=== PATIENT | female | born 1995 | race Caucasian/White ===

== ENCOUNTER 2022-06-26 11:48 | Inpatient (IN) ==
[2022-06-26] MEDS ORDERED: LIDOCAINE 1% LOCAL 20 ML VIAL INFIL PRN (13:20)
[2022-06-26] MEDS ORDERED: OXYTOCIN 30 UNITS/500 ML BAG IV PRN ×2 (13:20→13:26)
[2022-06-26] MEDS ORDERED: PENICILLIN G POTASSIUM 6 MU in DEXTROSE 5% 250 ML IV STA (13:24)
--- NOTE | 2022-06-26 13:26 | Obstetrical Progress Note ---
Date of Service June 26, 2022 Assessment & Plan (1) SROM (spontaneous rupture of membranes): Plan: Pt seen in the office today with c/o SROM yesterday at 26hrs ago Pt was sent to L&D and amnio sure is +ve, no gross pooling FHR; CAT1 Ctx irregular Bedside sono; VT VE; ft/50/post Recommend augmentation of labor with Pitocin and antibx Results & Data ([facility]) Vital Signs (Past 12 Hours) Vital Signs Temp Pulse Resp BP 06/26/22 11:56 78 129/83 06/26/22 11:56 37.2 C 18
[2022-06-26] MEDS: LACTATED RINGER'S 1,000 ML IV PRN ×3 (13:46→23:26)
[2022-06-26 14:26] LABS: Hematocrit (blood only) 36.5 % (37.0-47.0); Hemoglobin 12.2 g/dl (12.0-16.0); Mean Corpuscular Hemoglobin 28.6 pg (25.0-34.0); Mean Corpuscular Hgb Conc 33.4 g/dL (32.0-36.0); Mean Corpuscular Volume 85.5 fL (80.0-100.0); Mean Platelet Volume 11.9 fL (9.4-12.4); Platelet Count 212 K/uL (130-400); RDW Coefficient of Variation 14.9 % (11.5-14.5); RDW Standard Deviation 46.3 fL (36.4-46.3); Red Blood Count 4.27 M/uL (4.20-5.40); White Blood Count 6.36 K/ul (4.8-10.8)
[2022-06-26] MEDS: PENICILLIN G POTASSIUM 3 MU in DEXTROSE 5% 100 ML IV PRN ×2 (17:47→22:01)
[2022-06-26] MEDS ORDERED: ePHEDrine sulfate 50 MG/ML AMP ONE (19:16)
[2022-06-26] MEDS ORDERED: SODIUM CHLORIDE 0.9% INJ 10 ML VIAL ONE (19:16)
[2022-06-26] MEDS ORDERED: fentaNYL citrate 100 MCG/2 ML VIAL ONE (19:16)
[2022-06-26] MEDS ORDERED: fentaNYL 2MCG/ML ROPIVACAINE 1.25MG/ML 100 ML BAG EPI ONE (19:17)
[2022-06-26] MEDS ORDERED: BUPIVACAINE 0.25% 30 ML VIAL ONE (19:17)
[2022-06-26] MEDS ORDERED: LIDOCAINE 2%/EPINEPHRINE 1:200,000 20 ML SDV ONE (19:17)
[2022-06-26] MEDS ORDERED: diphenhydrAMINE 50 MG/ML VIAL IV PRN (19:48)
[2022-06-26] MEDS ORDERED: NALBUPHINE HCL INJ 10 MG/ML AMP IV PRN (19:48)
[2022-06-26] MEDS ORDERED: NALOXONE HCL 0.4 MG/1 ML VIAL/CARP IV PRN (19:48)
[2022-06-26] MEDS ORDERED: NALOXONE HCL 1 MG in SODIUM CHLORIDE 0.9% 1000ML 1,000 ML IV PRN (19:48)
[2022-06-26] MEDS ORDERED: ONDANSETRON INJ 2 MG/ML 2 ML VIAL IV PRN (19:48)
[2022-06-26] MEDS ORDERED: PROMETHAZINE HCL 6.25 MG in SODIUM CHLORIDE 0.9% 50 ML IV PRN (19:48)
[2022-06-26] MEDS ORDERED: ePHEDrine sulfate 50 MG/ML AMP IV PRN (19:48)
--- NOTE | 2022-06-26 19:48 | Anesthesiology Consultation ---
Date of Service June 26, 2022 Assessment & Plan Chart Review Chart Review: Patient NOT seen in Pre Admission Testing and Acceptable Risk for Labor Epidural Consults Requested none ASA ASA2 Proposed Anesthesia Anesthesia Type: Labor Epidural Risk / Benefits Reviewed With: PT / POA / Parent / Guardian, Accepts Plan and Informed Consent Obtained History Height/Weight Height: 5 ft 2 in Weight: 74.389 kg Allergies Allergy/AdvReac Type Severity Reaction Status Date / Time No Known Drug Allergies Allergy Unknown Unknown Verified 06/26/22 12:21 Medications Home Medications Medication Instructions Recorded Confirmed Last Taken Vitamin 1 tab 1XD 06/26/22 06/26/22 06/25/22 22:00 Vitron-C 1 pad PO 1XD 06/26/22 06/26/22 06/23/22 11:00 magnesium 1 tab PO 1XD 06/26/22 06/26/22 06/25/22 22:00 Active Medications Generic Name Dose Route Start Last Admin Trade Name Freq PRN Reason Stop Dose Admin Penicillin G Potassium 3 mu/ 106 mls @ 100 mls/hr 06/26/22 16:20 06/26/22 18:50 Dextrose IV 07/06/22 16:19 Infused Q4H PRN Infusion GBS(+) Until Delivery Lactated Ringer's 1,000 mls @ 125 mls/hr 06/26/22 13:20 06/26/22 19:11 Lr IV 06/28/22 13:19 999 mls/hr .Q8H PRN Infusion L&D Protocol Protocol Oxytocin 30 units in 500 mls @ 16 mls/hr 06/26/22 13:26 06/26/22 18:23 Pitocin IV 06/28/22 13:25 0.96 units/hr .Q24H PRN 16 mls/hr Labor Induction/Augmentation Titration Protocol 0.96 UNITS/HR Past Medical History Medical History (Updated 06/26/22 @ 13:23 by Marvin Moody MD) Heart murmur Exercise / Class Metabolic Activity II 4-5 Yardwork/Stairs/Walk up hill Past Family History Family History (Updated 06/26/22 @ 12:19 by Antonietta Toribio, SHAYNE) Other No known health problems Past Surgical History Surgical History (Updated 06/26/22 @ 12:19 by Antonietta Toribio, RN) History of tooth extraction Past Anesthesia History No Hx of Anesthesia Complications and No Family Hx of Anesthesia Complications History of PONV No Hx of PONV and No Hx of Motion Sickness Social History Smoking Status: Never smoker Do You Dip or Chew Tobacco: No Hx Alcohol Use: No Hx Substance Use: No substance use type: does not use Physical Exam Vital Signs Last Vital Signs Temp 37.2 C 06/26/22 19:03 Pulse 73 06/26/22 19:34 Resp 18 06/26/22 19:03 BP 156/95 H 06/26/22 19:34 ENMT Mouth: no dentition abnormality Thyromental Distance: > or= 3.5 Finger Breadths Mallampati Class: II Neck normal visual inspection Respiratory normal respiratory effort Auscultation: lungs clear to auscultation bilaterally Cardiovascular Rate/Rhythm: regular rate and regular rhythm Psychiatric Orientation: alert Testing Laboratory Results 06/26/22 13:57
[2022-06-26] MEDS: fentaNYL 2MCG/ML ROPIVACAINE 1.25MG/ML 100 ML BAG EPI PRN (20:04)
--- NOTE | 2022-06-26 21:48 | Obstetrical Progress Note ---
Date of Service June 26, 2022 Assessment & Plan (1) SROM (spontaneous rupture of membranes): Plan Pt doing well VE 9/100/0 station FHR; CAT1 Ctx 1-2 On Pitocin On antibx Bulginf bag- AROM with amnio hook 'anticipate VD Admission and Anticipated Discharge Date Admission Date: June 26, 2022 Results & Data ([facility]) Vital Signs (Past 12 Hours) Vital Signs Temp Pulse Resp BP Pulse Ox 06/26/22 19:03 37.2 C 18 06/26/22 21:45 85 97 06/26/22 21:31 18 06/26/22 21:31 18 06/26/22 21:40 18 06/26/22 21:40 82 18 98 06/26/22 21:35 98 06/26/22 21:35 73 06/26/22 21:35 80 133/74 06/26/22 21:30 89 98 06/26/22 21:25 91 H 98 06/26/22 21:20 80 98 06/26/22 21:19 82 131/75 06/26/22 21:15 85 98 06/26/22 21:02 18 06/26/22 21:02 37.0 C 18 06/26/22 21:10 75 98 06/26/22 21:05 79 98 06/26/22 21:04 88 122/73 06/26/22 21:00 83 98 06/26/22 20:55 83 99 06/26/22 20:50 99 06/26/22 20:50 81 06/26/22 20:50 78 131/73 06/26/22 20:45 74 98 06/26/22 20:40 87 97 06/26/22 20:35 98 06/26/22 20:35 74 06/26/22 20:35 77 124/75 06/26/22 20:30 84 98 06/26/22 20:25 18 06/26/22 20:25 72 18 97 06/26/22 20:20 85 18 98 06/26/22 20:10 18 06/26/22 20:10 18 06/26/22 20:18 77 130/77 06/26/22 20:15 77 18 98 06/26/22 20:16 79 133/78 06/26/22 20:14 78 134/78 06/26/22 20:12 77 132/75 06/26/22 20:10 97 06/26/22 20:10 80 06/26/22 20:10 86 141/82 H 06/26/22 20:08 86 136/77 06/26/22 20:05 75 18 97 06/26/22 20:06 72 139/77 06/26/22 20:04 77 151/74 H 06/26/22 20:02 81 147/85 H 06/26/22 20:00 94 H 98 06/26/22 19:55 101 H 98 06/26/22 19:34 73 156/95 H 06/26/22 18:46 86 139/86 06/26/22 18:42 75 146/102 H 06/26/22 18:33 78 138/98 06/26/22 17:50 16 06/26/22 17:50 37.0 C 16 06/26/22 17:33 85 124/73 06/26/22 16:34 78 131/81 06/26/22 16:15 16 06/26/22 16:15 36.9 C 16 06/26/22 15:33 96 H 134/84 06/26/22 14:33 79 140/86 06/26/22 13:50 18 06/26/22 13:50 37.0 C 82 18 136/78 06/26/22 11:56 78 129/83 06/26/22 11:56 37.2 C 18
[2022-06-27] MEDS: LACTATED RINGER'S 1,000 ML IV PRN ×2 (00:27→07:15)
--- NOTE | 2022-06-27 01:48 | Obstetrical Progress Note ---
Date of Service June 27, 2022 Assessment & Plan (1) SROM (spontaneous rupture of membranes): Plan: Fully dilated and pushing pain is 10 despite epidural Ctx 1-2mins VE; 10/100/+1 Pit; 16 Plan Pitocin decreased to half and d/c Turb given SQ IVF and oxygen Admission and Anticipated Discharge Date Admission Date: June 26, 2022 Results & Data ([facility]) Vital Signs (Past 12 Hours) Vital Signs Temp Pulse Resp BP Pulse Ox 06/26/22 19:03 37.2 C 18 06/27/22 01:41 99 H 100 06/27/22 01:36 100 H 100 06/27/22 01:37 98 H 136/82 06/27/22 01:31 105 H 100 06/27/22 01:26 107 H 99 06/27/22 01:22 103 H 91 06/27/22 01:21 98 H 98 06/27/22 01:05 101 H 146/86 H 06/27/22 00:20 83 L 06/27/22 00:20 118 H 06/27/22 00:20 118 H 86 L 06/27/22 00:15 118 H 98 06/27/22 00:10 83 L 06/27/22 00:10 112 H 06/27/22 00:10 101 H 160/93 H 06/27/22 00:05 108 H 80 L 06/27/22 00:00 129 H 96 06/26/22 23:57 110 H 91 06/26/22 23:55 90 99 06/26/22 23:50 97 H 97 06/26/22 23:45 91 H 99 06/26/22 23:40 88 97 06/26/22 23:35 97 06/26/22 23:35 86 06/26/22 23:35 87 154/95 H 06/26/22 23:30 91 H 98 06/26/22 23:25 85 98 06/26/22 23:20 87 97 06/26/22 23:19 91 H 142/89 H 06/26/22 23:15 90 97 06/26/22 23:10 86 98 06/26/22 23:05 86 97 06/26/22 23:04 83 131/82 06/26/22 23:00 93 H 98 06/26/22 22:55 86 98 06/26/22 22:50 86 97 06/26/22 22:49 78 135/83 06/26/22 22:45 86 98 06/26/22 22:40 83 97 06/26/22 22:35 96 06/26/22 22:35 84 06/26/22 22:35 86 134/84 06/26/22 22:30 111 H 98 06/26/22 22:25 90 98 06/26/22 22:20 92 H 99 06/26/22 22:19 84 144/88 H 06/26/22 22:15 88 97 06/26/22 22:10 86 99 06/26/22 22:05 79 98 06/26/22 22:04 85 127/82 06/26/22 22:00 84 98 06/26/22 21:55 81 98 06/26/22 21:50 84 140/84 98 06/26/22 21:45 85 97 06/26/22 21:31 18 06/26/22 21:31 18 06/26/22 21:40 18 06/26/22 21:40 82 18 98 06/26/22 21:35 98 06/26/22 21:35 73 06/26/22 21:35 80 133/74 06/26/22 21:30 89 98 06/26/22 21:25 91 H 98 06/26/22 21:20 80 98 06/26/22 21:19 82 131/75 06/26/22 21:15 85 98 06/26/22 21:02 18 06/26/22 21:02 37.0 C 18 06/26/22 21:10 75 98 06/26/22 21:05 79 98 06/26/22 21:04 88 122/73 06/26/22 21:00 83 98 06/26/22 20:55 83 99 06/26/22 20:50 99 06/26/22 20:50 81 06/26/22 20:50 78 131/73 06/26/22 20:45 74 98 06/26/22 20:40 87 97 06/26/22 20:35 98 06/26/22 20:35 74 06/26/22 20:35 77 124/75 06/26/22 20:30 84 98 06/26/22 20:25 18 06/26/22 20:25 72 18 97 02/27/23 20:20 85 18 98 06/26/22 20:10 18 06/26/22 20:10 18 06/26/22 20:18 77 130/77 06/26/22 20:15 77 18 98 06/26/22 20:16 79 133/78 06/26/22 20:14 78 134/78 06/26/22 20:12 77 132/75 06/26/22 20:10 97 06/26/22 20:10 80 06/26/22 20:10 86 141/82 H 06/26/22 20:08 86 136/77 06/26/22 20:05 75 18 97 06/26/22 20:06 72 139/77 06/26/22 20:04 77 151/74 H 06/26/22 20:02 81 147/85 H 06/26/22 20:00 94 H 98 06/26/22 19:55 101 H 98 06/26/22 19:34 73 156/95 H 06/26/22 18:46 86 139/86 06/26/22 18:42 75 146/102 H 06/26/22 18:33 78 138/98 06/26/22 17:50 16 06/26/22 17:50 37.0 C 16 06/26/22 17:33 85 124/73 06/26/22 16:34 78 131/81 06/26/22 16:15 16 06/26/22 16:15 36.9 C 16 06/26/22 15:33 96 H 134/84 06/26/22 14:33 79 140/86 06/26/22 13:50 18 06/26/22 13:50 37.0 C 82 18 136/78
[2022-06-27] MEDS: PENICILLIN G POTASSIUM 3 MU in DEXTROSE 5% 100 ML IV PRN ×2 (01:54→07:13)
[2022-06-27] MEDS ORDERED: BUPIVACAINE 0.25% 30 ML VIAL ONE (02:09)
[2022-06-27] MEDS ORDERED: TERBUTALINE SULFATE 1 MG/ML VIAL SQ ONE (03:06)
--- NOTE | 2022-06-27 03:06 | Obstetrical Progress Note ---
Date of Service June 27, 2022 Assessment & Plan (1) SROM (spontaneous rupture of membranes): Plan: Epidural analgesia redosed by anesthesia Pt's pain level is now minimal VE; unchanged. fetus responds with accells Ctx: minimal Plan start Pitocin will start pushing once we have a ctx pattern Admission and Anticipated Discharge Date Admission Date: June 26, 2022 Results & Data ([facility]) Vital Signs (Past 12 Hours) Vital Signs Temp Pulse Resp BP Pulse Ox 06/27/22 02:15 37.1 C 18 06/27/22 01:00 37.6 C H 18 06/26/22 23:00 37.4 C 18 06/26/22 19:03 37.2 C 18 06/27/22 02:56 100 H 98 06/27/22 02:51 102 H 100 06/27/22 02:49 101 H 134/75 06/27/22 02:46 100 H 100 06/27/22 02:41 98 H 100 06/27/22 02:36 98 H 100 06/27/22 02:34 102 H 136/73 06/27/22 02:31 93 H 100 06/27/22 02:26 102 H 100 06/27/22 02:21 103 H 100 06/27/22 02:19 94 H 134/78 06/27/22 02:16 98 H 100 06/27/22 02:11 97 H 98 06/27/22 02:06 94 H 100 06/27/22 02:05 102 H 142/81 H 06/27/22 02:01 95 H 100 06/27/22 01:56 101 H 100 06/27/22 01:51 96 H 100 06/27/22 01:49 91 H 137/77 06/27/22 01:46 98 H 100 06/27/22 01:41 99 H 100 06/27/22 01:36 100 H 100 06/27/22 01:37 98 H 136/82 06/27/22 01:31 105 H 100 06/27/22 01:26 107 H 99 06/27/22 01:22 103 H 91 06/27/22 01:21 98 H 98 06/27/22 01:05 101 H 146/86 H 06/27/22 00:20 83 L 06/27/22 00:20 118 H 06/27/22 00:20 118 H 86 L 06/27/22 00:15 118 H 98 06/27/22 00:10 83 L 06/27/22 00:10 112 H 06/27/22 00:10 101 H 160/93 H 06/27/22 00:05 108 H 80 L 06/27/22 00:00 129 H 96 06/26/22 23:57 110 H 91 06/26/22 23:55 90 99 06/26/22 23:50 97 H 97 06/26/22 23:45 91 H 99 06/26/22 23:40 88 97 06/26/22 23:35 97 06/26/22 23:35 86 06/26/22 23:35 87 154/95 H 06/26/22 23:30 91 H 98 06/26/22 23:25 85 98 06/26/22 23:20 87 97 06/26/22 23:19 91 H 142/89 H 06/26/22 23:15 90 97 06/26/22 23:10 86 98 06/26/22 23:05 86 97 06/26/22 23:04 83 131/82 06/26/22 23:00 93 H 98 06/26/22 22:55 86 98 06/26/22 22:50 86 97 06/26/22 22:49 78 135/83 06/26/22 22:45 86 98 06/26/22 22:40 83 97 06/26/22 22:35 96 06/26/22 22:35 84 06/26/22 22:35 86 134/84 06/26/22 22:30 111 H 98 06/26/22 22:25 90 98 06/26/22 22:20 92 H 99 06/26/22 22:19 84 144/88 H 06/26/22 22:15 88 97 06/26/22 22:10 86 99 06/26/22 22:05 79 98 06/26/22 22:04 85 127/82 06/26/22 22:00 84 98 06/26/22 21:55 81 98 06/26/22 21:50 84 140/84 98 06/26/22 21:45 85 97 06/26/22 21:31 18 06/26/22 21:31 18 06/26/22 21:40 18 06/26/22 21:40 82 18 98 06/26/22 21:35 98 06/26/22 21:35 73 06/26/22 21:35 80 133/74 06/26/22 21:30 89 98 06/26/22 21:25 91 H 98 06/26/22 21:20 80 98 06/26/22 21:19 82 131/75 06/26/22 21:15 85 98 06/26/22 21:02 18 06/26/22 21:02 37.0 C 18 06/26/22 21:10 75 98 06/26/22 21:05 79 98 06/26/22 21:04 88 122/73 06/26/22 21:00 83 98 06/26/22 20:55 83 99 06/26/22 20:50 99 06/26/22 20:50 81 06/26/22 20:50 78 131/73 06/26/22 20:45 74 98 06/26/22 20:40 87 97 06/26/22 20:35 98 06/26/22 20:35 74 06/26/22 20:35 77 124/75 06/26/22 20:30 84 98 06/26/22 20:25 18 06/26/22 20:25 72 18 97 06/26/22 20:20 85 18 98 06/26/22 20:10 18 06/26/22 20:10 18 06/26/22 20:18 77 130/77 06/26/22 20:15 77 18 98 06/26/22 20:16 79 133/78 06/26/22 20:14 78 134/78 06/26/22 20:12 77 132/75 06/26/22 20:10 97 06/26/22 20:10 80 06/26/22 20:10 86 141/82 H 06/26/22 20:08 86 136/77 06/26/22 20:05 75 18 97 06/26/22 20:06 72 139/77 06/26/22 20:04 77 151/74 H 06/26/22 20:02 81 147/85 H 06/26/22 20:00 94 H 98 06/26/22 19:55 101 H 98 06/26/22 19:34 73 156/95 H 06/26/22 18:46 86 139/86 06/26/22 18:42 75 146/102 H 06/26/22 18:33 78 138/98 06/26/22 17:50 16 06/26/22 17:50 37.0 C 16 06/26/22 17:33 85 124/73 06/26/22 16:34 78 131/81 06/26/22 16:15 16 06/26/22 16:15 36.9 C 16 06/26/22 15:33 96 H 134/84
[2022-06-27] MEDS: fentaNYL 2MCG/ML ROPIVACAINE 1.25MG/ML 100 ML BAG EPI PRN (05:12)
[2022-06-27] MEDS ORDERED: SODIUM CHLORIDE 0.9% 250 ML IV PRN (08:04)
[2022-06-27] MEDS ORDERED: LIDOCAINE 2%/EPINEPHRINE 1:200,000 20 ML SDV ONE (08:25)
[2022-06-27] MEDS ORDERED: MoRPHine SULFATE PF 1 MG/ML 10 ML AMP/VIAL ONE (08:25)
[2022-06-27] MEDS ORDERED: ONDANSETRON INJ 2 MG/ML 2 ML VIAL ONE (08:25)
[2022-06-27] MEDS ORDERED: SODIUM BICARB 8.4% INJ 50 MEQ/50 ML SYR IV ONE (08:26)
[2022-06-27] MEDS ORDERED: ceFAZolin 2000MG 2,000 MG/15 ML SYR IV ONE ×2 (09:29)
[2022-06-27] MEDS ORDERED: CITRIC ACID/SODIUM CITRATE 15 ML UDC ONE (09:31)
[2022-06-27] MEDS ORDERED: AZITHROMYCIN 500 MG in DEXTROSE 5% 250 ML IV STA (09:49)
[2022-06-27] MEDS ORDERED: NALOXONE HCL 0.08 MG in SYRINGE 1.8 ML IV PRN (10:11)
[2022-06-27] MEDS ORDERED: HYDROmorphone INJ 0.5 MG/0.5 ML SYR IV PRN (10:11)
[2022-06-27] MEDS ORDERED: ONDANSETRON INJ 2 MG/ML 2 ML VIAL IV PRN (10:11)
[2022-06-27] MEDS ORDERED: LACTATED RINGER'S 500 ML IV PRN (10:11)
[2022-06-27] MEDS ORDERED: NALBUPHINE HCL INJ 10 MG/ML AMP IV PRN (10:11)
[2022-06-27] MEDS ORDERED: diphenhydrAMINE 50 MG/ML VIAL IV PRN (10:11)
[2022-06-27] MEDS ORDERED: NALOXONE HCL 0.4 MG/1 ML VIAL/CARP IV PRN (10:11)
[2022-06-27] MEDS ORDERED: ePHEDrine sulfate 50 MG/ML AMP IV PRN (10:11)
[2022-06-27] MEDS ORDERED: PROMETHAZINE HCL 12.5 MG in SODIUM CHLORIDE 0.9% 50 ML IV PRN (10:11)
[2022-06-27] MEDS ORDERED: MoRPHine SULFATE PF 1 MG/ML 10 ML AMP/VIAL EPI ONE (10:11)
[2022-06-27] MEDS ORDERED: KETOROLAC 30 MG/ML VIAL IV PRN (10:11)
[2022-06-27] MEDS ORDERED: ACETAMINOPHEN 1,000 MG/100 ML VIAL IV PRN (10:11)
[2022-06-27] MEDS ORDERED: NALOXONE HCL 1 MG in SODIUM CHLORIDE 0.9% 1000ML 1,000 ML IV PRN (10:11)
[2022-06-27] MEDS ORDERED: SODIUM CHLORIDE 0.9% 1000ML 1,000 ML IV SCH (10:15)
[2022-06-27] MEDS ORDERED: NO NARCOTICS OR SEDATIVES SCH (10:15)
[2022-06-27] MEDS ORDERED: BENZOCAINE 20% AER SPR 82.5 GM CAN EXT PRN (10:39)
[2022-06-27] MEDS ORDERED: DIPHTHERIA/TETANUS/PERTUSSIS 0.5mL SYR/VIAL (Age 7+yrs) IM ONE (10:39)
[2022-06-27] MEDS ORDERED: MAGNESIUM HYDROXIDE SUSP 30 ML UDC PO PRN (10:39)
[2022-06-27] MEDS ORDERED: HYDROCORTISONE ACETATE 25 MG SUPP PR PRN (10:39)
[2022-06-27] MEDS ORDERED: SENNA 8.6 MG TAB PO PRN (10:39)
[2022-06-27] MEDS ORDERED: OXYTOCIN 20 UNITS in LACTATED RINGER'S 1,000 ML IV SCH (10:45)
--- NOTE | 2022-06-27 10:50 | Anesthesia Procedure Note ---
Date of Service June 27, 2022 Anesthesia Post Epidural Note Vital Signs Vital Signs: Temp Pulse Resp BP Pulse Ox 98.6 F 101 H 20 113/65 97 06/27/22 09:31 06/27/22 10:46 06/27/22 09:31 06/27/22 10:41 06/27/22 10:46 Pain Intensity Bilateral Abdomen: Pain Intensity: 0 Notes Mental Status: alert / awake / arousable and participated in evaluation Nausea / Vomiting: adequately controlled Pain: adequately controlled Airway Patency, RR, SpO2: stable & adequate BP & HR: stable & adequate Hydration State: stable & adequate Neuraxial Anesthesia: was administered and sensory block is resolving Anesthetic Complications: no major complications apparent and Pt Satisfied with anesthetic care Epidural: Removed without complications and With tip intact
--- NOTE | 2022-06-27 10:50 | Anesthesiology Progress Note ---
Date of Service June 27, 2022 Anesthesia Post Procedure Vital Signs Vital Signs: Temp Pulse Resp BP Pulse Ox 06/27/22 07:15 97.7 F 20 06/27/22 02:15 98.8 F 18 06/27/22 01:00 99.7 F H 18 06/26/22 23:00 99.3 F 18 06/26/22 19:03 99.0 F 18 06/27/22 10:46 101 H 97 06/27/22 10:41 106 H 113/65 98 06/27/22 09:31 20 06/27/22 09:31 98.6 F 20 06/27/22 09:29 88 96 06/27/22 09:24 83 96 06/27/22 09:19 96 06/27/22 09:19 86 06/27/22 09:19 87 127/76 06/27/22 09:14 84 96 06/27/22 09:09 85 96 06/27/22 09:01 18 06/27/22 09:01 18 06/27/22 09:04 81 137/74 96 06/27/22 08:31 20 06/27/22 08:31 20 06/27/22 08:59 89 97 06/27/22 08:01 20 06/27/22 08:01 20 06/27/22 08:54 93 H 97 06/27/22 08:49 93 H 98 06/27/22 08:50 90 135/82 06/27/22 08:44 93 H 97 06/27/22 08:39 95 H 96 06/27/22 08:38 104 H 94 06/27/22 08:34 96 H 131/81 96 06/27/22 08:35 98 H 132/79 06/27/22 08:29 99 H 96 06/27/22 08:24 101 H 97 06/27/22 08:19 97 06/27/22 08:19 132 H 06/27/22 08:19 131 H 158/114 H 06/27/22 08:14 93 H 96 06/27/22 07:31 20 06/27/22 07:31 20 06/27/22 08:09 92 H 95 06/27/22 08:04 89 134/72 96 06/27/22 07:59 89 95 06/27/22 07:54 92 H 96 06/27/22 07:51 90 128/76 06/27/22 07:49 93 H 96 06/27/22 07:44 94 H 93 06/27/22 07:39 97 H 97 06/27/22 07:34 93 H 97 06/27/22 07:35 96 H 143/82 H 06/27/22 07:29 100 H 96 06/27/22 07:24 107 H 97 06/27/22 07:19 89 136/73 99 06/27/22 07:14 103 H 99 06/27/22 07:09 103 H 99 06/27/22 07:04 103 H 138/82 99 06/27/22 06:59 108 H 99 06/27/22 06:54 108 H 100 06/27/22 06:49 102 H 137/78 99 06/27/22 06:46 114 H 87 L 06/27/22 06:44 100 H 97 06/27/22 06:39 101 H 96 06/27/22 06:35 110 H 132/71 06/27/22 06:34 111 H 95 06/27/22 06:31 116 H 94 06/27/22 06:29 113 H 96 06/27/22 06:24 109 H 97 06/27/22 06:15 98.8 F 06/27/22 06:04 125 H 130/87 06/27/22 05:50 116 H 130/79 06/27/22 05:41 109 H 93 06/27/22 05:37 112 H 98 06/27/22 05:35 134 H 134/69 06/27/22 05:34 111 H 84 L 06/27/22 05:32 108 H 98 06/27/22 05:28 117 H 88 L 06/27/22 05:26 112 H 18 98 06/27/22 05:22 131 H 91 06/27/22 05:21 124 H 97 06/27/22 05:19 121 H 152/83 H 06/27/22 05:16 112 H 98 06/27/22 05:11 107 H 97 06/27/22 05:12 113 H 152/84 H 06/27/22 05:06 129 H 98 06/27/22 05:01 104 H 98 06/27/22 04:56 101 H 98 06/27/22 04:51 113 H 97 06/27/22 04:50 96 H 137/82 06/27/22 04:46 96 H 95 06/27/22 04:41 104 H 96 06/27/22 04:36 98 H 97 06/27/22 04:35 89 136/83 06/27/22 04:31 96 H 97 06/27/22 04:26 91 H 97 06/27/22 04:21 92 H 96 06/27/22 04:19 96 H 134/81 06/27/22 04:16 92 H 97 06/27/22 04:11 99.3 F 90 18 96 06/27/22 04:06 100 H 97 06/27/22 04:05 106 H 133/85 06/27/22 04:01 92 H 97 06/27/22 03:56 93 H 96 06/27/22 03:51 95 H 97 06/27/22 03:50 93 H 138/79 06/27/22 03:46 85 97 06/27/22 03:41 97 H 96 06/27/22 03:36 87 136/78 97 06/27/22 03:31 90 18 97 06/27/22 03:26 92 H 96 06/27/22 03:21 98 H 97 06/27/22 03:20 100 H 135/79 06/27/22 03:16 105 H 97 06/27/22 03:11 95 H 99 06/27/22 01:53 18 06/27/22 01:53 18 06/27/22 03:06 91 H 97 06/27/22 03:05 89 115/61 06/27/22 03:01 94 H 98 06/27/22 02:56 100 H 98 06/27/22 02:51 102 H 100 06/27/22 02:49 101 H 134/75 06/27/22 02:46 100 H 100 06/27/22 02:41 98 H 100 06/27/22 02:36 98 H 100 06/27/22 02:34 102 H 136/73 06/27/22 02:31 93 H 100 06/27/22 02:26 102 H 100 06/27/22 02:21 103 H 100 06/27/22 02:19 94 H 134/78 06/27/22 02:16 98 H 100 06/27/22 02:11 97 H 98 06/27/22 02:06 94 H 100 06/27/22 02:05 102 H 142/81 H 06/27/22 02:01 95 H 100 06/27/22 01:56 101 H 100 06/27/22 01:51 96 H 100 06/27/22 01:49 91 H 137/77 06/27/22 01:46 98 H 100 06/27/22 01:41 99 H 100 06/27/22 01:36 100 H 100 06/27/22 01:37 98 H 136/82 06/27/22 01:31 105 H 100 06/27/22 01:26 107 H 99 06/27/22 01:22 103 H 91 06/27/22 01:21 98 H 98 06/27/22 01:05 101 H 146/86 H 06/27/22 00:20 83 L 06/27/22 00:20 118 H 06/27/22 00:20 118 H 86 L 06/27/22 00:15 118 H 98 06/27/22 00:10 83 L 06/27/22 00:10 112 H 06/27/22 00:10 101 H 160/93 H 06/27/22 00:05 108 H 80 L 06/27/22 00:00 129 H 96 06/26/22 23:57 110 H 91 06/26/22 23:55 90 99 06/26/22 23:50 97 H 97 06/26/22 23:45 91 H 99 06/26/22 23:40 88 97 06/26/22 23:35 97 06/26/22 23:35 86 06/26/22 23:35 87 154/95 H 06/26/22 23:30 91 H 98 06/26/22 23:25 85 98 06/26/22 23:20 87 97 06/26/22 23:19 91 H 142/89 H 06/26/22 23:15 90 97 06/26/22 23:10 86 98 06/26/22 23:05 86 97 06/26/22 23:04 83 131/82 06/26/22 23:00 93 H 98 06/26/22 22:55 86 98 06/26/22 22:50 86 97 06/26/22 22:49 78 135/83 06/26/22 22:45 86 98 06/26/22 22:40 83 97 06/26/22 22:35 96 06/26/22 22:35 84 06/26/22 22:35 86 134/84 06/26/22 22:30 111 H 98 06/26/22 22:25 90 98 06/26/22 22:20 92 H 99 06/26/22 22:19 84 144/88 H 06/26/22 22:15 88 97 06/26/22 22:10 86 99 06/26/22 22:05 79 98 06/26/22 22:04 85 127/82 06/26/22 22:00 84 98 06/26/22 21:55 81 98 06/26/22 21:50 84 140/84 98 06/26/22 21:45 85 97 06/26/22 21:31 18 06/26/22 21:31 18 06/26/22 21:40 18 06/26/22 21:40 82 18 98 06/26/22 21:35 98 06/26/22 21:35 73 06/26/22 21:35 80 133/74 06/26/22 21:30 89 98 06/26/22 21:25 91 H 98 06/26/22 21:20 80 98 06/26/22 21:19 82 131/75 06/26/22 21:15 85 98 06/26/22 21:02 18 06/26/22 21:02 98.6 F 18 06/26/22 21:10 75 98 06/26/22 21:05 79 98 06/26/22 21:04 88 122/73 06/26/22 21:00 83 98 06/26/22 20:55 83 99 06/26/22 20:50 99 06/26/22 20:50 81 06/26/22 20:50 78 131/73 06/26/22 20:45 74 98 06/26/22 20:40 87 97 06/26/22 20:35 98 06/26/22 20:35 74 06/26/22 20:35 77 124/75 06/26/22 20:30 84 98 06/26/22 20:25 18 06/26/22 20:25 72 18 97 06/26/22 20:20 85 18 98 06/26/22 20:10 18 06/26/22 20:10 18 06/26/22 20:18 77 130/77 06/26/22 20:15 77 18 98 06/26/22 20:16 79 133/78 06/26/22 20:14 78 134/78 06/26/22 20:12 77 132/75 06/26/22 20:10 97 06/26/22 20:10 80 06/26/22 20:10 86 141/82 H 06/26/22 20:08 86 136/77 06/26/22 20:05 75 18 97 06/26/22 20:06 72 139/77 06/26/22 20:04 77 151/74 H 06/26/22 20:02 81 147/85 H 06/26/22 20:00 94 H 98 06/26/22 19:55 101 H 98 06/26/22 19:34 73 156/95 H 06/26/22 18:46 86 139/86 06/26/22 18:42 75 146/102 H 06/26/22 18:33 78 138/98 06/26/22 17:50 16 06/26/22 17:50 98.6 F 16 06/26/22 17:33 85 124/73 06/26/22 16:34 78 131/81 06/26/22 16:15 16 06/26/22 16:15 98.4 F 16 06/26/22 15:33 96 H 134/84 06/26/22 14:33 79 140/86 06/26/22 13:50 18 06/26/22 13:50 98.6 F 82 18 136/78 06/26/22 11:56 78 129/83 06/26/22 11:56 99.0 F 18 Pain Intensity Bilateral Abdomen: Pain Intensity: 0 Transfer of Care Handoff Completed per policy Notes Mental Status: alert / awake / arousable and participated in evaluation Patient Amnestic to Procedure: No Nausea / Vomiting: adequately controlled Pain: adequately controlled Airway Patency, RR, SpO2: stable & adequate BP & HR: stable & adequate Hydration State: stable & adequate Neuraxial Anesthesia: was administered and sensory block is resolving Anesthetic Complications: no major complications apparent and Pt Satisfied with anesthetic care
--- NOTE | 2022-06-27 11:54 | Operative Report (OR) ---
INDICATION FOR SURGERY: This is a 27-year-old at 40 weeks with prolonged rupture of membranes and augmentation of labor. The patient has experienced arrest of descent. Decision was therefore made to perform section. PREOPERATIVE DIAGNOSES: 1. at term. 2. Prolonged rupture of membranes. 3. Arrest of descent. POSTOPERATIVE DIAGNOSES: 1. at term. 2. Prolonged rupture of membranes. 3. Arrest of descent. SURGEON: Marvin Moody MD. MARBLE POLISHER HAND: Rajan Marrero MD. PROCEDURE: Primary section. ESTIMATED BLOOD LOSS: 50. URINE OUTPUT: 50 mL of concentrated urine. INTRAVENOUS FLUIDS: 900 mL. FINDINGS: Live in cephalic presentation with thick meconium. Uterus, tubes, and adnexa appeared unremarkable. Meconium stained placenta. The patient appeared to have a band on the uterus. COMPLICATIONS: None. DRAINS: Espitia catheter. PATHOLOGY: Cord blood, cord gases and placenta. PATIENT CONDITION: Stable. DISPOSITION: Postanesthesia care unit. ATTESTATION: I performed the entire procedure. DESCRIPTION OF PROCEDURE: The patient was taken to the operating room where she was prepped and draped in normal sterile fashion in dorsal lithotomy position. Pfannenstiel incision was made with a scalpel, carried down to the fascia. Fascia was incised in the midline and extended laterally on both sides. Fascia was sharply dissected off of the uterus abdominis muscle superiorly and inferiorly. The rectus abdominis muscle was . Peritoneum was identified and entered sharply. Once inside the abdomen, the findings as dictated above. Bladder blade was used to retract the bladder out of the operating field. A low transverse incision was made. As stated above, patient had a band on the uterus. Low transverse incision was made and extended laterally on both sides. There was thick meconium seen. 's head was delivered with the rest of the body. Cord was clamped and cut and handed over to the awaiting pediatric team. Details of the 's information is in the pediatric record. Cord gas and cord blood was obtained. Placenta was manually removed from the uterus. Uterus was exteriorized and cleared of all clots and debris. Uterus was closed with 2 layers of Vicryl. There was good hemostasis post-repair. Copious amount of irrigation was used to irrigate the abdomen. Once again, hemostasis was obtained. The uterus was returned into the abdominal cavity and peritoneum closed with plain suture. There was good hemostasis on the rectus abdominis muscle. The fascia was closed in a running fashion with Vicryl stitch. Subcutaneous space was irrigated and approximated with plain suture. Skin was closed with yennifer. All instruments were removed from the abdomen and accounted for x2 including sponges, needles, and retractors. The patient is sent to recovery in stable condition. Job ID: [id number] [facility]
[2022-06-27] MEDS ORDERED: OXYTOCIN 10 UNITS/ML 10ML VIAL IM ONE (14:29)
[2022-06-27] MEDS ORDERED: OXYTOCIN 10 UNITS/ML VIAL ONE (14:59)
[2022-06-27] MEDS: SIMETHICONE 80 MG CHEW PO SCH (20:10)
[2022-06-27] MEDS: LACTATED RINGER'S 1,000 ML IV SCH ×2 (22:44)
[2022-06-28] MEDS ORDERED: DC INTRASPINAL MORPHINE SCH (04:12)
[2022-06-28] MEDS ORDERED: PROMETHAZINE HCL 25 MG in SODIUM CHLORIDE 0.9% 50 ML IV PRN (04:13)
[2022-06-28] MEDS ORDERED: diphenhydrAMINE 50 MG/ML VIAL IV PRN (04:13)
[2022-06-28] MEDS ORDERED: diphenhydrAMINE Capsule 25 MG CAP PO PRN (04:13)
[2022-06-28] MEDS ORDERED: ONDANSETRON INJ 2 MG/ML 2 ML VIAL IV PRN (04:13)
[2022-06-28] MEDS: oxyCODONE/ACETAMINOPHEN 5mg/325mg TAB PO PRN ×5 (05:49→23:46)
[2022-06-28] MEDS: IBUPROFEN 600 MG TAB PO PRN ×5 (05:49→23:46)
[2022-06-28] MEDS ORDERED: CITRIC ACID/SODIUM CITRATE 15 ML UDC PO SCH (06:00)
[2022-06-28 06:34] LABS: Basophils # (auto) 0.03 K/uL (0-0.2); Basophils % (auto) 0.2 %; Eosinophils # (auto) 0.03 K/uL (0-0.50); Eosinophils % (auto) 0.2 %; Hematocrit (blood only) 30.9 % (37.0-47.0); Hemoglobin 10.5 g/dl (12.0-16.0); Immature Granulocytes % (auto) 0.7 %; Lymphocytes % (auto) 9.1 %; Mean Corpuscular Hemoglobin 28.8 pg (25.0-34.0); Mean Corpuscular Volume 84.9 fL (80.0-100.0); Mean Platelet Volume 11.5 fL (9.4-12.4); Monocytes # (auto) 0.63 K/uL (0.11-0.59); Monocytes % (auto) 4.4 %; Neutrophils # (auto) 12.21 K/uL (1.40-6.50); Neutrophils % (auto) 85.4 %; Platelet Count 151 K/uL (130-400); RDW Coefficient of Variation 15.3 % (11.5-14.5); RDW Standard Deviation 47.2 fL (36.4-46.3); Red Blood Count 3.64 M/uL (4.20-5.40)
[2022-06-28] MEDS: SIMETHICONE 80 MG CHEW PO SCH ×4 (09:05→19:51)
[2022-06-28] MEDS: PRENATAL VITAMIN 1 TAB PO SCH (09:06)
[2022-06-28] MEDS: FERROUS SULFATE 325 MG TAB PO SCH (09:06)
[2022-06-28] MEDS: DOCUSATE SODIUM 100 MG CAP PO SCH ×3 (09:06→19:50)
--- NOTE | 2022-06-28 09:43 | Obstetrical Progress Note ---
Date of Service June 28, 2022 Assessment & Plan (1) delivery delivered: Plan Pt doing well No complaints Continue day #1 post op care Subjective Ambulation: ambulating normally Voiding: no voiding problems Passing Gas:: Yes Diet Tolerance:: clear liquids Lochia:: Small Feeding Type:: breast feeding Review of Systems All systems reviewed & are unremarkable except as noted in HPI & below Physical Exam Constitutional WD/WN, vitals as above well developed and well nourished Eyes PERRL, conjunctivae normal, anicteric sclerae ENMT external ear and nose normal, oropharynx normal Neck trachea midline, no thyromegaly Respiratory normal respiratory effort, lungs clear to auscultation Cardiovascular RRR, no murmur, no edema Chest (Breasts) normal inspection/palpation of breasts Gastrointestinal (Abdomen) normal bowel sounds, soft, nontender, no hepatosplenomegaly Musculoskeletal no cyanosis or clubbing, extremities motor strength 5/5 Skin no rashes, warm and dry + incision (Clean,dry and intact) Neurologic patellar DTR's 2+ bilat, sensation intact Psychiatric A+Ox3, euthymic affect Genitourinary normal external appearance Lymphatic no cervical or axillary lymphadenopathy Results & Data ([facility]) Vital Signs (Past 12 Hours) Vital Signs Temp Pulse Resp BP Pulse Ox O2 Del Method 06/28/22 08:25 36.8 C 71 16 133/87 96 Room Air 06/28/22 04:00 18 95 06/28/22 03:00 18 95 06/28/22 02:00 18 95 06/28/22 03:45 37 C 79 18 132/86 06/28/22 01:01 18 94 06/28/22 00:00 18 95 06/27/22 23:00 18 95 06/27/22 23:00 37.3 C 82 18 139/88 95 Room Air 06/27/22 22:00 18 95
--- NOTE | 2022-06-28 10:52 | Discharge Summary (DS) ---
DATE OF ADMISSION: ____ DATE OF DISCHARGE: Will be 06/29/2022 ____ CHIEF COMPLAINT: 1. at term. 2. Prolonged rupture of membranes. HISTORY OF PRESENT ILLNESS: This is a 27-year-old G2, P1, who presented to labor and delivery after being seen in the office on 06/27/2022. She complained of ruptured membranes 2 days earlier. She wa s sent to labor and delivery. In labor and delivery, spontaneous rupture of membranes was confirmed. She was 40 weeks and 2 days, at that time. The patient was admitted and induction of labor was sta rted. She received Pitocin and went on to be fully dilated. She had arrest of descent for several h ours. The patient finally underwent section on 06/27/2022 and delivered a live infant. Ruben ght and Apgars in the pediatric records. On postop day #1, which was 06/28/2022, patient was able to tolerate food, ambulate, and pain medicine. Plan is to be discharged tomorrow on 06/29/2022. PAST SURGICAL HISTORY: None. MEDICAL HISTORY: The patient has history of heart murmurs. SOCIAL HISTORY: Denies tobacco, drug, or alcohol use. FAMILY HISTORY: Noncontributory. ALLERGIES: No known drug allergies. VITAL SIGNS: On 06/28/2022, blood pressure is 133/87, pulse of 71, respirations 16, temperature 36.8 . PHYSICAL EXAMINATION: HEART: S1 and S2, regular rhythm and rate. LUNGS: Clear to auscultation bilaterally. ABDOMEN: Nontender, nondistended, positive bowel sounds. Incision clean, dry and intact. CONDITION ON DISCHARGE: Pending. OPERATIONS: Primary section for failure to ____ arrest of descent. DISCHARGE DIAGNOSIS: Postoperative section. PLAN ON DISCHARGE: The patient will be given instructions regarding activity, diet, and followup janey ointment. Job ID: [id number]
[2022-06-28] MEDS ORDERED: bisacodyL 5 MG TABEC PO SCH (20:00)
[2022-06-29 06:45] LABS: Hematocrit (blood only) 29.6 % (37.0-47.0); Hemoglobin 9.9 g/dl (12.0-16.0)
--- NOTE | 2022-06-29 08:19 | Obstetrical Progress Note ---
Date of Service June 29, 2022 Assessment & Plan (1) delivery delivered: Continue routine care d/c home tomorrow if doing well Subjective Ambulation: ambulating normally Voiding: no voiding problems Passing Gas:: Yes Diet Tolerance:: regular diet Lochia:: Moderate Feeding Type:: breast feeding Current Pain Level(1-10): 3 Uncomfortable with pain, Percocet helping. Unsure if she wants to go home tomorrow or wait till tomorrow. Physical Exam Constitutional WD/WN, vitals as above Respiratory normal respiratory effort, lungs clear to auscultation Cardiovascular RRR, no murmur, no edema Gastrointestinal (Abdomen) soft, mild fundus tenderness at U, no guarding or rebound Results & Data ([facility]) Vital Signs (Past 12 Hours) Vital Signs Temp Pulse Resp BP Pulse Ox O2 Del Method 06/28/22 23:45 36.5 C 64 18 131/82 97 Room Air Laboratory Results Laboratory Results WBC 14.30 K/ul (4.8-10.8) H 06/28/22 06:04 RBC 3.64 M/uL (4.20-5.40) L 06/28/22 06:04 Hgb 9.9 g/dl (12.0-16.0) L 06/29/22 06:24 Hct 29.6 % (37.0-47.0) L 06/29/22 06:24 MCV 84.9 fL (80.0-100.0) 06/28/22 06:04 MCH 28.8 pg (25.0-34.0) 06/28/22 06:04 MCHC 34.0 g/dL (32.0-36.0) 06/28/22 06:04 RDW Std Deviation 47.2 fL (36.4-46.3) H 06/28/22 06:04 RDW Coeff of Josefa 15.3 % (11.5-14.5) H 06/28/22 06:04 Plt Count 151 K/uL (130-400) 06/28/22 06:04 MPV 11.5 fL (9.4-12.4) 06/28/22 06:04 Immature Gran % (Auto) 0.7 % 06/28/22 06:04 Neut % (Auto) 85.4 % 06/28/22 06:04 Lymph % (Auto) 9.1 % 06/28/22 06:04 [place] % (Auto) 4.4 % 06/28/22 06:04 Eos % (Auto) 0.2 % 06/28/22 06:04 Baso % (Auto) 0.2 % 06/28/22 06:04 Neut # (Auto) 12.21 K/uL (1.40-6.50) H 06/28/22 06:04 Lymph # (Auto) 1.30 K/uL (1.2-3.4) 06/28/22 06:04 [place] # (Auto) 0.63 K/uL (0.11-0.59) H 06/28/22 06:04 Eos # (Auto) 0.03 K/uL (0-0.50) 06/28/22 06:04 Baso # (Auto) 0.03 K/uL (0-0.2) 06/28/22 06:04 Immature Gran # (Auto) 0.10 K/uL (0.01-0.20) 06/28/22 06:04 Amniotic Protein POS 06/26/22 12:43 SARS-CoV-2, RNA, NAAT NEGATIVE (NEGATIVE) 06/26/22 Unknown Blood Type O Positive 06/26/22 13:57 Antibody Screen NEGATIVE 06/26/22 13:57 Crossmatch See Detail 06/26/22 13:57
[2022-06-29] MEDS: SIMETHICONE 80 MG CHEW PO SCH ×4 (08:51→19:49)
[2022-06-29] MEDS: IBUPROFEN 600 MG TAB PO PRN ×4 (08:52→23:03)
[2022-06-29] MEDS: oxyCODONE/ACETAMINOPHEN 5mg/325mg TAB PO PRN ×4 (08:54→23:02)
[2022-06-29] MEDS: PRENATAL VITAMIN 1 TAB PO SCH (08:56)
[2022-06-29] MEDS: FERROUS SULFATE 325 MG TAB PO SCH (08:56)
[2022-06-29] MEDS: DOCUSATE SODIUM 100 MG CAP PO SCH ×2 (08:56→19:49)
[2022-06-29] MEDS ORDERED: bisacodyL 10 MG SUPP PR PRN (10:39)
[2022-06-29] MEDS ORDERED: LABETALOL HCL IV 5 MG/ML 20ML IV STA (22:31)
[2022-06-29] MEDS ORDERED: MAG SULFATE 4GM BOLUS FROM BAG IV ONE (22:31)
--- NOTE | 2022-06-29 22:37 | Obstetrical Progress Note ---
Date of Service June 29, 2022 Assessment & Plan (1) delivery delivered: (2) Pre-eclampsia, severe, delivered: Stat PIH labs pending Start magnesium sulfate 4 g an hour with a maintenance dose of 2 g an hour Repeat labs in the morning IV 20 mg labetalol stat Subjective Called by nursing staff as patient felt symptomatic and she had 2 severe range blood pressures in a row. Discussed with patient the reason for going over to labor and delivery and h aving magnesium sulfate for seizure prophylaxis for the next 24 hours, to prevent eclamptic seizure. She voiced her understanding and is agreeing to go Physical Exam Constitutional WD/WN, vitals as above Respiratory normal respiratory effort, lungs clear to auscultation Cardiovascular RRR, no murmur, no edema Results & Data ([facility]) Vital Signs (Past 12 Hours) Vital Signs Temp Pulse Resp BP Pulse Ox O2 Del Method 06/29/22 22:29 173/102 H 06/29/22 22:15 190/106 H 06/29/22 19:30 36.8 C 66 18 148/88 H 98 Room Air 06/29/22 13:00 36.4 C L 68 18 137/83 98 Room Air
[2022-06-29 23:03] LABS: Hematocrit (blood only) 31.3 % (37.0-47.0); Hemoglobin 10.6 g/dl (12.0-16.0); Mean Corpuscular Hemoglobin 28.4 pg (25.0-34.0); Mean Corpuscular Hgb Conc 33.9 g/dL (32.0-36.0); Mean Corpuscular Volume 83.9 fL (80.0-100.0); Mean Platelet Volume 11.2 fL (9.4-12.4); Platelet Count 250 K/uL (130-400); RDW Coefficient of Variation 14.8 % (11.5-14.5); RDW Standard Deviation 45.7 fL (36.4-46.3); Red Blood Count 3.73 M/uL (4.20-5.40); White Blood Count 10.07 K/ul (4.8-10.8)
[2022-06-29] MEDS: MAGNESIUM SULFATE / WTR 40 GM/1,000 ML BAG IV SCH (23:09)
[2022-06-29] MEDS: LACTATED RINGER'S 1,000 ML IV SCH (23:14)
[2022-06-29 23:17] LABS: Albumin Globulin Ratio 1.1 (0.9-2); Albumin Level 3.4 gm/dl (3.4-5.0); BUN Creatinine Ratio 15.9 (10-20); Bilirubin,Total 0.4 mg/dl (0.2-1.0); Calcium 8.9 mg/dl (8.5-10.1); Creatinine Clr Calc Pharmacy 116.7 ml/min; Est GFR (African American) 139.2 ml/min; Est GFR (Non-African American) 120.1 ml/min; Globulin 3.1 gm/dl (2.5-4.0); Total Protein 6.5 gm/dl (6.0-8.3)
[2022-06-29] MEDS ORDERED: Nursing to Pharmacy Communication SCH (23:45)
[2022-06-30 00:33] LABS: Total Protein Urine Random 4.3 mg/dl (0-11.9)
[2022-06-30 00:39] LABS: Creatinine Urine Random 7.4 mg/dl; Protein Creatinine Ratio Urine 0.6 (0-0.2)
[2022-06-30] MEDS: IBUPROFEN 600 MG TAB PO PRN ×5 (03:36→21:44)
[2022-06-30] MEDS: oxyCODONE/ACETAMINOPHEN 5mg/325mg TAB PO PRN ×5 (03:37→21:44)
[2022-06-30 06:53] LABS: Hematocrit (blood only) 29.3 % (37.0-47.0); Hemoglobin 9.8 g/dl (12.0-16.0); Mean Corpuscular Hemoglobin 28.4 pg (25.0-34.0); Mean Corpuscular Hgb Conc 33.4 g/dL (32.0-36.0); Mean Corpuscular Volume 84.9 fL (80.0-100.0); Mean Platelet Volume 10.7 fL (9.4-12.4); Platelet Count 237 K/uL (130-400); RDW Coefficient of Variation 14.8 % (11.5-14.5); RDW Standard Deviation 46.1 fL (36.4-46.3); Red Blood Count 3.45 M/uL (4.20-5.40); White Blood Count 7.28 K/ul (4.8-10.8)
--- NOTE | 2022-06-30 06:57 | Obstetrical Progress Note ---
Date of Service June 30, 2022 Assessment & Plan (1) delivery delivered: (2) Pre-eclampsia, severe, delivered: Currently on magnesium sulfate for seizure prophylaxis Protein creatinine ratio 0.6 Remaining PIH labs stable, no signs of help syndrome Continue IV magnesium sulfate for 24 hours Subjective Patient comfortable in bed at this time, was able to pump overnight. Extremely tired and states is hard for her to keep her eyes open. No other complaints except itchiness over her incision Physical Exam Constitutional WD/WN, vitals as above Respiratory normal respiratory effort, lungs clear to auscultation Cardiovascular RRR, no murmur, no edema Gastrointestinal (Abdomen) normal bowel sounds, soft, nontender, no hepatosplenomegaly Incision clean dry intact and well approximated, no erythema, yennifer in place Neurologic patellar DTR's 2+ bilat, sensation intact Results & Data ([facility]) Vital Signs (Past 12 Hours) Vital Signs Temp Pulse Pulse Resp BP BP Pulse Ox 06/30/22 06:35 18 06/30/22 05:45 18 06/30/22 04:34 16 06/30/22 03:30 36.6 C 16 06/30/22 03:30 16 06/30/22 02:00 16 06/30/22 01:00 16 06/29/22 23:45 36.5 C 18 06/29/22 23:45 06/29/22 23:45 18 06/29/22 22:29 173/102 H 06/29/22 22:15 190/106 H 06/29/22 19:30 36.8 C 66 18 148/88 H 98 06/30/22 06:52 69 97 06/30/22 06:47 57 L 97 06/30/22 06:42 59 L 96 06/30/22 06:37 62 99 06/30/22 06:32 61 98 06/30/22 06:27 66 97 06/30/22 06:22 58 L 97 06/30/22 06:17 60 97 06/30/22 06:12 58 L 98 06/30/22 06:07 65 100 06/30/22 06:02 57 L 125/71 99 06/30/22 05:57 58 L 97 06/30/22 05:52 59 L 97 06/30/22 05:47 60 98 06/30/22 05:42 62 99 06/30/22 05:37 69 98 06/30/22 05:32 65 99 06/30/22 05:27 65 96 06/30/22 05:25 70 94 06/30/22 05:22 66 97 06/30/22 05:17 64 98 06/30/22 05:12 63 98 06/30/22 05:07 60 98 06/30/22 05:02 99 06/30/22 05:02 61 06/30/22 05:02 67 108/62 06/30/22 04:57 60 96 06/30/22 04:52 61 96 06/30/22 04:47 63 96 06/30/22 04:42 62 96 06/30/22 04:37 61 97 06/30/22 04:32 61 98 06/30/22 04:27 62 96 06/30/22 04:22 63 96 06/30/22 04:17 63 96 06/30/22 04:12 63 96 06/30/22 04:07 65 97 06/30/22 04:02 99 06/30/22 04:02 66 06/30/22 04:02 67 114/61 06/30/22 03:57 68 97 06/30/22 03:52 71 98 06/30/22 03:47 67 99 06/30/22 03:42 63 98 06/30/22 03:37 77 99 06/30/22 03:32 66 98 06/30/22 03:27 68 99 06/30/22 03:22 63 96 06/30/22 03:17 63 96 06/30/22 03:12 64 96 06/30/22 03:07 63 96 06/30/22 03:02 98 06/30/22 03:02 63 06/30/22 03:02 65 112/57 L 06/30/22 02:57 64 96 06/30/22 02:52 64 96 06/30/22 02:47 64 96 06/30/22 02:42 64 96 06/30/22 02:37 65 97 06/30/22 02:32 64 95 06/30/22 02:27 67 95 06/30/22 02:25 70 94 06/30/22 02:22 76 96 06/30/22 02:17 71 96 06/30/22 02:18 70 93 06/30/22 02:12 70 95 06/30/22 02:07 73 92 06/30/22 02:05 73 93 06/30/22 02:02 63 113/58 L 97 06/30/22 01:57 63 96 06/30/22 01:52 64 95 06/30/22 01:47 64 95 06/30/22 01:42 64 96 06/30/22 01:37 64 96 06/30/22 01:32 64 95 06/30/22 01:27 65 96 06/30/22 01:22 95 06/30/22 01:22 66 06/30/22 01:22 66 94 06/30/22 01:17 68 96 06/30/22 01:12 65 96 06/30/22 01:07 67 98 06/30/22 01:02 65 120/62 98 06/30/22 00:58 64 94 06/30/22 00:57 63 94 06/30/22 00:52 64 97 06/30/22 00:47 71 96 06/30/22 00:42 66 97 06/30/22 00:37 67 97 06/30/22 00:32 69 97 06/30/22 00:27 70 97 06/30/22 00:22 68 96 06/30/22 00:17 67 98 06/30/22 00:12 74 98 06/30/22 00:07 70 98 06/30/22 00:02 72 99 06/30/22 00:01 68 122/63 06/29/22 23:57 98 06/29/22 23:57 72 06/29/22 23:57 65 122/63 06/29/22 23:52 68 96 06/29/22 23:51 65 123/63 06/29/22 23:47 68 97 06/29/22 23:46 68 117/63 06/29/22 23:42 75 99 06/29/22 23:41 75 132/66 06/29/22 23:37 75 96 06/29/22 23:36 73 126/68 06/29/22 23:32 79 97 06/29/22 23:31 82 132/73 06/29/22 23:27 97 06/29/22 23:27 72 06/29/22 23:27 68 131/73 06/29/22 23:22 69 97 06/29/22 23:21 69 148/83 H 06/29/22 23:18 86 94 06/29/22 23:17 64 148/84 H 06/29/22 23:16 66 100 06/29/22 23:11 63 100 06/29/22 23:10 63 171/91 H 06/29/22 23:06 76 100 06/29/22 23:01 67 98 06/29/22 22:59 62 172/86 H 06/29/22 22:56 68 100 O2 Del Method 06/30/22 06:35 06/30/22 05:45 06/30/22 04:34 06/30/22 03:30 06/30/22 03:30 06/30/22 02:00 06/30/22 01:00 06/29/22 23:45 06/29/22 23:45 Room Air 06/29/22 23:45 06/29/22 22:29 06/29/22 22:15 06/29/22 19:30 Room Air 06/30/22 06:52 06/30/22 06:47 06/30/22 06:42 06/30/22 06:37 06/30/22 06:32 06/30/22 06:27 06/30/22 06:22 06/30/22 06:17 06/30/22 06:12 06/30/22 06:07 06/30/22 06:02 06/30/22 05:57 06/30/22 05:52 06/30/22 05:47 06/30/22 05:42 06/30/22 05:37 06/30/22 05:32 06/30/22 05:27 06/30/22 05:25 06/30/22 05:22 06/30/22 05:17 06/30/22 05:12 06/30/22 05:07 06/30/22 05:02 06/30/22 05:02 06/30/22 05:02 06/30/22 04:57 06/30/22 04:52 06/30/22 04:47 06/30/22 04:42 06/30/22 04:37 06/30/22 04:32 06/30/22 04:27 06/30/22 04:22 06/30/22 04:17 06/30/22 04:12 06/30/22 04:07 06/30/22 04:02 06/30/22 04:02 06/30/22 04:02 06/30/22 03:57 06/30/22 03:52 06/30/22 03:47 06/30/22 03:42 06/30/22 03:37 06/30/22 03:32 06/30/22 03:27 06/30/22 03:22 06/30/22 03:17 06/30/22 03:12 06/30/22 03:07 06/30/22 03:02 06/30/22 03:02 06/30/22 03:02 06/30/22 02:57 06/30/22 02:52 06/30/22 02:47 06/30/22 02:42 06/30/22 02:37 06/30/22 02:32 06/30/22 02:27 06/30/22 02:25 06/30/22 02:22 06/30/22 02:17 06/30/22 02:18 06/30/22 02:12 06/30/22 02:07 06/30/22 02:05 06/30/22 02:02 06/30/22 01:57 06/30/22 01:52 06/30/22 01:47 06/30/22 01:42 06/30/22 01:37 06/30/22 01:32 06/30/22 01:27 06/30/22 01:22 06/30/22 01:22 06/30/22 01:22 06/30/22 01:17 06/30/22 01:12 06/30/22 01:07 06/30/22 01:02 06/30/22 00:58 06/30/22 00:57 06/30/22 00:52 06/30/22 00:47 06/30/22 00:42 06/30/22 00:37 06/30/22 00:32 06/30/22 00:27 06/30/22 00:22 06/30/22 00:17 06/30/22 00:12 06/30/22 00:07 06/30/22 00:02 06/30/22 00:01 06/29/22 23:57 06/29/22 23:57 06/29/22 23:57 06/29/22 23:52 06/29/22 23:51 06/29/22 23:47 06/29/22 23:46 06/29/22 23:42 06/29/22 23:41 06/29/22 23:37 06/29/22 23:36 06/29/22 23:32 06/29/22 23:31 06/29/22 23:27 06/29/22 23:27 06/29/22 23:27 06/29/22 23:22 06/29/22 23:21 06/29/22 23:18 06/29/22 23:17 06/29/22 23:16 06/29/22 23:11 06/29/22 23:10 06/29/22 23:06 06/29/22 23:01 06/29/22 22:59 06/29/22 22:56 Laboratory Results Laboratory Results WBC 7.28 K/ul (4.8-10.8) 06/30/22 06:31 RBC 3.45 M/uL (4.20-5.40) L 06/30/22 06:31 Hgb 9.8 g/dl (12.0-16.0) L 06/30/22 06:31 Hct 29.3 % (37.0-47.0) L 06/30/22 06:31 MCV 84.9 fL (80.0-100.0) 06/30/22 06:31 MCH 28.4 pg (25.0-34.0) 06/30/22 06:31 MCHC 33.4 g/dL (32.0-36.0) 06/30/22 06:31 RDW Std Deviation 46.1 fL (36.4-46.3) 06/30/22 06:31 RDW Coeff of Josefa 14.8 % (11.5-14.5) H 06/30/22 06:31 Plt Count 237 K/uL (130-400) 06/30/22 06:31 MPV 10.7 fL (9.4-12.4) 06/30/22 06:31 Immature Gran % (Auto) 0.7 % 06/28/22 06:04 Neut % (Auto) 85.4 % 06/28/22 06:04 Lymph % (Auto) 9.1 % 06/28/22 06:04 [place] % (Auto) 4.4 % 06/28/22 06:04 Eos % (Auto) 0.2 % 06/28/22 06:04 Baso % (Auto) 0.2 % 06/28/22 06:04 Neut # (Auto) 12.21 K/uL (1.40-6.50) H 06/28/22 06:04 Lymph # (Auto) 1.30 K/uL (1.2-3.4) 06/28/22 06:04 [place] # (Auto) 0.63 K/uL (0.11-0.59) H 06/28/22 06:04 Eos # (Auto) 0.03 K/uL (0-0.50) 06/28/22 06:04 Baso # (Auto) 0.03 K/uL (0-0.2) 06/28/22 06:04 Immature Gran # (Auto) 0.10 K/uL (0.01-0.20) 06/28/22 06:04 Sodium 138 mmol/L (136-145) 06/29/22 22:41 Potassium 4.0 mmol/L (3.5-5.1) 06/29/22 22:41 Chloride 105 mmol/L (98-107) 06/29/22 22:41 Carbon Dioxide 25 mmol/L (21-32) 06/29/22 22:41 Anion Gap 8 (3-11) 06/29/22 22:41 BUN 11 mg/dl (6-23) 06/29/22 22:41 Creatinine 0.69 mg/dl (0.6-1.2) 06/29/22 22:41 Est Cr Clr Drug Dosing 116.7 ml/min 06/29/22 22:41 Est GFR ( Amer) 139.2 ml/min 06/29/22 22:41 Est GFR (Non-Af Amer) 120.1 ml/min 06/29/22 22:41 BUN/Creatinine Ratio 15.9 (10-20) 06/29/22 22:41 Glucose 89 mg/dl (70-99(Fasting)) 06/29/22 22:41 Calcium 8.9 mg/dl (8.5-10.1) 06/29/22 22:41 Total Bilirubin 0.4 mg/dl (0.2-1.0) 06/29/22 22:41 AST 23 U/L (13-39) 06/29/22 22:41 ALT 11 U/L (7-52) 06/29/22 22:41 Alkaline Phosphatase 124 U/L (34-104) H 06/29/22 22:41 Total Protein 6.5 gm/dl (6.0-8.3) 06/29/22 22:41 Albumin 3.4 gm/dl (3.4-5.0) 06/29/22 22:41 Globulin 3.1 gm/dl (2.5-4.0) 06/29/22 22:41 Albumin/Globulin Ratio 1.1 (0.9-2) 06/29/22 22:41 Ur Random Creatinine 7.4 mg/dl 06/29/22 23:30 U Random Total Protein 4.3 mg/dl (0-11.9) 06/29/22 23:30 Protein/Creatinin Ratio 0.6 (0-0.2) H 06/29/22 23:30 Amniotic Protein POS 06/26/22 12:43 SARS-CoV-2, RNA, NAAT NEGATIVE (NEGATIVE) 06/26/22 Unknown Blood Type O Positive 06/26/22 13:57 Antibody Screen NEGATIVE 06/26/22 13:57 Crossmatch See Detail 06/26/22 13:57
[2022-06-30] MEDS: PRENATAL VITAMIN 1 TAB PO SCH (07:20)
[2022-06-30] MEDS: SIMETHICONE 80 MG CHEW PO SCH ×4 (07:20→19:29)
[2022-06-30] MEDS: FERROUS SULFATE 325 MG TAB PO SCH (07:20)
[2022-06-30] MEDS: DOCUSATE SODIUM 100 MG CAP PO SCH ×2 (07:20→19:29)
[2022-06-30 07:37] LABS: BUN Creatinine Ratio 13.4 (10-20); Bilirubin,Total 0.4 mg/dl (0.2-1.0); Calcium 7.8 mg/dl (8.5-10.1); Creatinine Clr Calc Pharmacy 120.2 ml/min; Est GFR (African American) 140.6 ml/min; Est GFR (Non-African American) 121.3 ml/min; Globulin 2.9 gm/dl (2.5-4.0); Potassium 3.7 mmol/L (3.5-5.1); Total Protein 5.9 gm/dl (6.0-8.3)
[2022-06-30] MEDS: NIFEdipine EXTENDED REL 30 MG TABCR PO SCH (08:34)
--- NOTE | 2022-06-30 10:13 | Obstetrical Progress Note ---
Date of Service June 30, 2022 Subjective Ambulation: limited ambulation Voiding: lemons catheter in place Diet Tolerance:: regular diet Lochia:: Small Feeding Type:: breast feeding Current Pain Level(1-10): 0 Physical Exam Constitutional WD/WN, vitals as above Gastrointestinal (Abdomen) abdomen soft but slightly distended Musculoskeletal Extremities: extremities normal to inspection Skin no rashes, warm and dry Neurologic patellar DTR's 2+ bilat, sensation intact Psychiatric A+Ox3, euthymic affect Results & Data ([facility]) Vital Signs (Past 12 Hours) Vital Signs Temp Pulse Pulse Resp BP BP Pulse Ox 06/30/22 09:15 18 06/30/22 07:30 20 06/30/22 07:30 36.4 C L 58 L 20 100 06/30/22 06:35 18 06/30/22 05:45 18 06/30/22 04:34 16 06/30/22 03:30 36.6 C 16 06/30/22 03:30 16 06/30/22 02:00 16 06/30/22 01:00 16 06/29/22 23:45 36.5 C 18 06/29/22 23:45 06/29/22 23:45 18 06/29/22 22:29 173/102 H 06/29/22 22:15 190/106 H 06/30/22 10:07 69 98 06/30/22 10:02 69 115/71 100 06/30/22 09:57 69 97 06/30/22 09:52 74 99 06/30/22 09:47 60 97 06/30/22 09:42 67 97 06/30/22 09:37 60 97 06/30/22 09:32 60 97 06/30/22 09:27 58 L 97 06/30/22 09:22 69 100 06/30/22 09:17 64 97 06/30/22 09:12 62 98 06/30/22 09:07 64 100 06/30/22 09:02 98 06/30/22 09:02 73 06/30/22 09:02 67 130/75 06/30/22 08:57 63 99 06/30/22 08:52 73 99 06/30/22 08:47 68 100 06/30/22 08:42 71 100 06/30/22 08:37 67 100 06/30/22 08:32 66 100 06/30/22 08:33 63 128/81 06/30/22 08:27 67 100 06/30/22 08:22 63 100 06/30/22 08:17 67 100 06/30/22 08:12 63 99 06/30/22 08:07 66 100 06/30/22 08:02 65 132/84 98 06/30/22 07:57 67 100 06/30/22 07:52 58 L 97 06/30/22 07:47 57 L 100 06/30/22 07:42 67 100 06/30/22 07:37 60 100 06/30/22 07:32 63 100 06/30/22 07:28 62 139/85 06/30/22 07:27 65 100 06/30/22 07:22 78 100 06/30/22 07:17 59 L 96 06/30/22 07:12 60 97 06/30/22 07:07 67 98 06/30/22 07:02 59 L 120/68 97 06/30/22 06:57 58 L 96 06/30/22 06:52 69 97 06/30/22 06:47 57 L 97 06/30/22 06:42 59 L 96 06/30/22 06:37 62 99 06/30/22 06:32 61 98 06/30/22 06:27 66 97 06/30/22 06:22 58 L 97 06/30/22 06:17 60 97 06/30/22 06:12 58 L 98 06/30/22 06:07 65 100 06/30/22 06:02 57 L 125/71 99 06/30/22 05:57 58 L 97 06/30/22 05:52 59 L 97 06/30/22 05:47 60 98 06/30/22 05:42 62 99 06/30/22 05:37 69 98 06/30/22 05:32 65 99 06/30/22 05:27 65 96 06/30/22 05:25 70 94 06/30/22 05:22 66 97 06/30/22 05:17 64 98 06/30/22 05:12 63 98 06/30/22 05:07 60 98 06/30/22 05:02 99 06/30/22 05:02 61 06/30/22 05:02 67 108/62 03/03/23 04:57 60 96 06/30/22 04:52 61 96 06/30/22 04:47 63 96 06/30/22 04:42 62 96 06/30/22 04:37 61 97 06/30/22 04:32 61 98 06/30/22 04:27 62 96 06/30/22 04:22 63 96 06/30/22 04:17 63 96 06/30/22 04:12 63 96 06/30/22 04:07 65 97 06/30/22 04:02 99 06/30/22 04:02 66 06/30/22 04:02 67 114/61 06/30/22 03:57 68 97 06/30/22 03:52 71 98 06/30/22 03:47 67 99 06/30/22 03:42 63 98 06/30/22 03:37 77 99 06/30/22 03:32 66 98 06/30/22 03:27 68 99 06/30/22 03:22 63 96 06/30/22 03:17 63 96 06/30/22 03:12 64 96 06/30/22 03:07 63 96 06/30/22 03:02 98 06/30/22 03:02 63 06/30/22 03:02 65 112/57 L 06/30/22 02:57 64 96 06/30/22 02:52 64 96 06/30/22 02:47 64 96 06/30/22 02:42 64 96 06/30/22 02:37 65 97 06/30/22 02:32 64 95 06/30/22 02:27 67 95 06/30/22 02:25 70 94 06/30/22 02:22 76 96 06/30/22 02:17 71 96 06/30/22 02:18 70 93 06/30/22 02:12 70 95 06/30/22 02:07 73 92 06/30/22 02:05 73 93 06/30/22 02:02 63 113/58 L 97 06/30/22 01:57 63 96 06/30/22 01:52 64 95 06/30/22 01:47 64 95 06/30/22 01:42 64 96 06/30/22 01:37 64 96 06/30/22 01:32 64 95 06/30/22 01:27 65 96 06/30/22 01:22 95 06/30/22 01:22 66 06/30/22 01:22 66 94 06/30/22 01:17 68 96 06/30/22 01:12 65 96 06/30/22 01:07 67 98 06/30/22 01:02 65 120/62 98 06/30/22 00:58 64 94 06/30/22 00:57 63 94 06/30/22 00:52 64 97 06/30/22 00:47 71 96 06/30/22 00:42 66 97 06/30/22 00:37 67 97 06/30/22 00:32 69 97 06/30/22 00:27 70 97 06/30/22 00:22 68 96 06/30/22 00:17 67 98 06/30/22 00:12 74 98 06/30/22 00:07 70 98 06/30/22 00:02 72 99 06/30/22 00:01 68 122/63 06/29/22 23:57 98 06/29/22 23:57 72 06/29/22 23:57 65 122/63 06/29/22 23:52 68 96 06/29/22 23:51 65 123/63 06/29/22 23:47 68 97 06/29/22 23:46 68 117/63 06/29/22 23:42 75 99 06/29/22 23:41 75 132/66 06/29/22 23:37 75 96 06/29/22 23:36 73 126/68 06/29/22 23:32 79 97 06/29/22 23:31 82 132/73 06/29/22 23:27 97 06/29/22 23:27 72 06/29/22 23:27 68 131/73 06/29/22 23:22 69 97 06/29/22 23:21 69 148/83 H 06/29/22 23:18 86 94 06/29/22 23:17 64 148/84 H 06/29/22 23:16 66 100 06/29/22 23:11 63 100 06/29/22 23:10 63 171/91 H 06/29/22 23:06 76 100 06/29/22 23:01 67 98 06/29/22 22:59 62 172/86 H 03/02/23 22:56 68 100 O2 Del Method 06/30/22 09:15 06/30/22 07:30 06/30/22 07:30 Room Air 06/30/22 06:35 06/30/22 05:45 06/30/22 04:34 06/30/22 03:30 06/30/22 03:30 06/30/22 02:00 06/30/22 01:00 06/29/22 23:45 06/29/22 23:45 Room Air 06/29/22 23:45 06/29/22 22:29 06/29/22 22:15 06/30/22 10:07 06/30/22 10:02 06/30/22 09:57 06/30/22 09:52 06/30/22 09:47 06/30/22 09:42 06/30/22 09:37 06/30/22 09:32 06/30/22 09:27 06/30/22 09:22 06/30/22 09:17 06/30/22 09:12 06/30/22 09:07 06/30/22 09:02 06/30/22 09:02 06/30/22 09:02 06/30/22 08:57 06/30/22 08:52 06/30/22 08:47 06/30/22 08:42 06/30/22 08:37 06/30/22 08:32 06/30/22 08:33 06/30/22 08:27 06/30/22 08:22 06/30/22 08:17 06/30/22 08:12 06/30/22 08:07 06/30/22 08:02 06/30/22 07:57 06/30/22 07:52 06/30/22 07:47 06/30/22 07:42 06/30/22 07:37 06/30/22 07:32 06/30/22 07:28 06/30/22 07:27 06/30/22 07:22 06/30/22 07:17 06/30/22 07:12 06/30/22 07:07 06/30/22 07:02 06/30/22 06:57 06/30/22 06:52 06/30/22 06:47 06/30/22 06:42 06/30/22 06:37 06/30/22 06:32 06/30/22 06:27 06/30/22 06:22 06/30/22 06:17 06/30/22 06:12 06/30/22 06:07 06/30/22 06:02 06/30/22 05:57 06/30/22 05:52 06/30/22 05:47 06/30/22 05:42 06/30/22 05:37 06/30/22 05:32 06/30/22 05:27 06/30/22 05:25 06/30/22 05:22 06/30/22 05:17 06/30/22 05:12 06/30/22 05:07 06/30/22 05:02 06/30/22 05:02 06/30/22 05:02 06/30/22 04:57 06/30/22 04:52 06/30/22 04:47 06/30/22 04:42 06/30/22 04:37 06/30/22 04:32 06/30/22 04:27 06/30/22 04:22 06/30/22 04:17 06/30/22 04:12 06/30/22 04:07 06/30/22 04:02 06/30/22 04:02 06/30/22 04:02 06/30/22 03:57 06/30/22 03:52 06/30/22 03:47 06/30/22 03:42 06/30/22 03:37 06/30/22 03:32 06/30/22 03:27 06/30/22 03:22 06/30/22 03:17 06/30/22 03:12 06/30/22 03:07 06/30/22 03:02 06/30/22 03:02 06/30/22 03:02 06/30/22 02:57 06/30/22 02:52 06/30/22 02:47 06/30/22 02:42 06/30/22 02:37 06/30/22 02:32 06/30/22 02:27 06/30/22 02:25 06/30/22 02:22 06/30/22 02:17 06/30/22 02:18 06/30/22 02:12 06/30/22 02:07 06/30/22 02:05 06/30/22 02:02 06/30/22 01:57 06/30/22 01:52 06/30/22 01:47 06/30/22 01:42 06/30/22 01:37 06/30/22 01:32 06/30/22 01:27 06/30/22 01:22 06/30/22 01:22 06/30/22 01:22 06/30/22 01:17 06/30/22 01:12 06/30/22 01:07 06/30/22 01:02 06/30/22 00:58 06/30/22 00:57 06/30/22 00:52 06/30/22 00:47 06/30/22 00:42 06/30/22 00:37 06/30/22 00:32 06/30/22 00:27 06/30/22 00:22 06/30/22 00:17 06/30/22 00:12 06/30/22 00:07 06/30/22 00:02 06/30/22 00:01 06/29/22 23:57 06/29/22 23:57 06/29/22 23:57 06/29/22 23:52 06/29/22 23:51 06/29/22 23:47 06/29/22 23:46 06/29/22 23:42 06/29/22 23:41 06/29/22 23:37 06/29/22 23:36 06/29/22 23:32 06/29/22 23:31 06/29/22 23:27 06/29/22 23:27 06/29/22 23:27 06/29/22 23:22 06/29/22 23:21 06/29/22 23:18 06/29/22 23:17 06/29/22 23:16 06/29/22 23:11 06/29/22 23:10 06/29/22 23:06 06/29/22 23:01 06/29/22 22:59 06/29/22 22:56 Laboratory Results Laboratory Results - last 72 hr 06/28/22 06/29/22 06/29/22 06:04 06:24 22:41 WBC 14.30 H 10.07 RBC 3.64 L 3.73 L Hgb 10.5 L 9.9 L 10.6 L Hct 30.9 L 29.6 L 31.3 L MCV 84.9 83.9 MCH 28.8 28.4 MCHC 34.0 33.9 RDW Std Deviation 47.2 H 45.7 RDW Coeff of Josefa 15.3 H 14.8 H Plt Count 151 250 D MPV 11.5 11.2 Immature Gran % (Auto) 0.7 Neut % (Auto) 85.4 Lymph % (Auto) 9.1 [place] % (Auto) 4.4 Eos % (Auto) 0.2 Baso % (Auto) 0.2 Neut # (Auto) 12.21 H Lymph # (Auto) 1.30 [place] # (Auto) 0.63 H Eos # (Auto) 0.03 Baso # (Auto) 0.03 Immature Gran # (Auto) 0.10 Sodium Potassium Chloride Carbon Dioxide Anion Gap BUN Creatinine Est Cr Clr Drug Dosing Est GFR ( Amer) Est GFR (Non-Af Amer) BUN/Creatinine Ratio Glucose Calcium Magnesium (Sulf Ther) Total Bilirubin AST ALT Alkaline Phosphatase Total Protein Albumin Globulin Albumin/Globulin Ratio Ur Random Creatinine U Random Total Protein Protein/Creatinin Ratio 06/29/22 06/29/22 06/30/22 22:41 23:30 06:31 WBC 7.28 RBC 3.45 L Hgb 9.8 L Hct 29.3 L MCV 84.9 MCH 28.4 MCHC 33.4 RDW Std Deviation 46.1 RDW Coeff of Josefa 14.8 H Plt Count 237 MPV 10.7 Immature Gran % (Auto) Neut % (Auto) Lymph % (Auto) [place] % (Auto) Eos % (Auto) Baso % (Auto) Neut # (Auto) Lymph # (Auto) [place] # (Auto) Eos # (Auto) Baso # (Auto) Immature Gran # (Auto) Sodium 138 Potassium 4.0 Chloride 105 Carbon Dioxide 25 Anion Gap 8 BUN 11 Creatinine 0.69 Est Cr Clr Drug Dosing 116.7 Est GFR ( Amer) 139.2 Est GFR (Non-Af Amer) 120.1 BUN/Creatinine Ratio 15.9 Glucose 89 Calcium 8.9 Magnesium (Sulf Ther) Total Bilirubin 0.4 AST 23 ALT 11 Alkaline Phosphatase 124 H Total Protein 6.5 Albumin 3.4 Globulin 3.1 Albumin/Globulin Ratio 1.1 Ur Random Creatinine 7.4 U Random Total Protein 4.3 Protein/Creatinin Ratio 0.6 H 06/30/22 06/30/22 06:31 08:19 WBC RBC Hgb Hct MCV MCH MCHC RDW Std Deviation RDW Coeff of Josefa Plt Count MPV Immature Gran % (Auto) Neut % (Auto) Lymph % (Auto) [place] % (Auto) Eos % (Auto) Baso % (Auto) Neut # (Auto) Lymph # (Auto) [place] # (Auto) Eos # (Auto) Baso # (Auto) Immature Gran # (Auto) Sodium 137 Potassium 3.7 Chloride 105 Carbon Dioxide 27 Anion Gap 5 BUN 9 Creatinine 0.67 Est Cr Clr Drug Dosing 120.2 Est GFR ( Amer) 140.6 Est GFR (Non-Af Amer) 121.3 BUN/Creatinine Ratio 13.4 Glucose 93 Calcium 7.8 L Magnesium (Sulf Ther) 6.0 Total Bilirubin 0.4 AST 18 ALT 10 Alkaline Phosphatase 105 H Total Protein 5.9 L Albumin 3.0 L Globulin 2.9 Albumin/Globulin Ratio 1.0 Ur Random Creatinine U Random Total Protein Protein/Creatinin Ratio
[2022-06-30] MEDS: LACTATED RINGER'S 1,000 ML IV SCH (12:12)
[2022-06-30] MEDS: MAGNESIUM SULFATE / WTR 40 GM/1,000 ML BAG IV SCH (17:07)
[2022-06-30] MEDS ORDERED: LABETALOL HCL IV 5 MG/ML 20ML IV STA (19:11)
[2022-07-01] MEDS: IBUPROFEN 600 MG TAB PO PRN ×2 (01:42→07:53)
[2022-07-01] MEDS: oxyCODONE/ACETAMINOPHEN 5mg/325mg TAB PO PRN ×2 (01:42→07:53)
[2022-07-01] MEDS: FERROUS SULFATE 325 MG TAB PO SCH (07:52)
[2022-07-01] MEDS: DOCUSATE SODIUM 100 MG CAP PO SCH (07:52)
[2022-07-01] MEDS: PRENATAL VITAMIN 1 TAB PO SCH (07:52)
[2022-07-01] MEDS: SIMETHICONE 80 MG CHEW PO SCH (07:52)
[2022-07-01] MEDS: NIFEdipine EXTENDED REL 30 MG TABCR PO SCH (09:17)
--- NOTE | 2022-07-01 11:56 | Obstetrical Progress Note ---
Date of Service July 01, 2022 Assessment & Plan (1) delivery delivered: POD #2 s/p GTN pt doing well stable BP on Procardia d/C home today with instructions Results & Data ([facility]) Vital Signs (Past 12 Hours) Vital Signs Temp Pulse Resp BP 07/01/22 03:45 20 07/01/22 09:19 79 123/79 07/01/22 07:37 36.8 C 81 16 124/60 07/01/22 07:27 85 118/63 07/01/22 03:45 70 144/89 H 07/01/22 00:25 64 121/71
--- NOTE | 2022-07-01 20:48 | Discharge Summary (DS) ---
DATE OF ADMISSION: 06/26/2022. DATE OF DISCHARGE: 07/01/2022. CHIEF COMPLAINT AND HISTORY OF PRESENT ILLNESS: This is a 27-year-old G2, P1, who presented to labor and delivery on 06/26/2022 after she was seen in our office with spontaneous rupture of membranes fo r over 24 hours. On labor and delivery, this was confirmed. She was admitted and induction of labor was started. On that day, her was term. The patient received Pitocin augmentation. She we nt on to be fully dilated and then experienced arrest of descent. She went on to receive a section on 06/27/2022. Details of the surgery and the infant, there was information on their respect shemar records. The patient on postop day #1, which was 06/28/2022, did well, met all milestones recovery on . The patient experienced elevated blood pressures. She was started on magnesium sulfate and treated for preeclampsia. She has since improved. Her blood pressure continues, however , to be elevated and is presently on Procardia and doing well. The patient is today being discharged home in stable condition. PAST MEDICAL HISTORY: History of heart murmurs. PAST SURGICAL HISTORY: History of dental procedures. ALLERGIES: No known allergies. SOCIAL HISTORY: The patient denies tobacco, drug, or alcohol use. FAMILY HISTORY: Noncontributory. PHYSICAL EXAMINATION: GENERAL: Well-developed, well-nourished white female in no acute distress. HEART: S1 and S2, regular rhythm and rate. LUNGS: Clear to auscultation bilaterally. ABDOMEN: Nontender, nondistended. Incision clean, dry and intact. EXTREMITIES: No cyanosis, clubbing or edema. CONDITION ON DISCHARGE: Stable. OPERATIONS: Repeat section, gestational hypertension. DISCHARGE DIAGNOSIS: Postop and hypertension. PLAN ON DISCHARGE: The patient is discharged home with instructions regarding activity, diet, and [facility] appointment. Job ID: [id number]
== END 2022-07-01 12:50 | disposition home or self-care (01) | DRG 788 ==
LOC: OPB 11:48 → 4S1 11:55 → 4E2 06-27 14:00 → 4S1 06-29 22:42